=== PATIENT | male | born 1945 ===

== ENCOUNTER 2017-02-26 05:53 | Day surgery (SDC) | payer MEDICARE, OTHER ==
[2017-02-23 11:21] VITALS: BMI 24.5
[2017-02-26] MEDS ORDERED: Iohexol 350mg/ml 100 ML ONE (07:36)
[2017-02-26] MEDS ORDERED: Nitroglycerin 50mg in D5W 50 MG/250 ML BOTTLE IV ONE (07:37)
[2017-02-26] MEDS ORDERED: Midazolam 2 MG/2 ML VIAL ONE ×2 (07:37→07:46)
[2017-02-26] MEDS ORDERED: Sodium Chloride 0.9% 500 ML IV ONE (10:16)
[2017-02-26 12:50] VITALS: BP 127/71; PULSE 64; RESP 15; TEMP 97.9
--- NOTE | 2017-02-26 23:46 | CARDCATH ---
PROCEDURE DATE: 02/26/2017 INDICATIONS: Mr. Chris Villa is a 71-year-old male with history of hypertension, diabetes, hyperlipidemia referred to me by Dr. Ulysses Francisco for evaluation of abnormal stress test. The patient was having symptoms of chest pain and was on medical therapy. PROCEDURE PERFORMED: Left heart catheterization with selective left and right coronary angiograms via 6-Tamazight left radial arterial access. TECHNIQUES OF PROCEDURE: After obtaining informed consent, the patient was brought to the cardiac catheterization in post-absorptive, non-sedated state. The patient was prepped and draped in the usual sterile fashion. A 2% lidocaine was used for infiltration anesthesia. Using modified Seldinger technique, a 6-Tamazight sheath was introduced into the left radial artery. Subsequently over an exchange line J-wire, a JR-4 and JL-4 diagnostic catheters were used to engage the right and left coronary systems. Subsequently, over the J-wire, the JR-4 was used to cross the aortic valve and LV gram was obtained in the WATERS view. Selective angiograms of the left and right coronary systems were obtained in different orthogonal views. At the end of the procedure, a Nicholas wristband was deployed with 10 mL of air for hemostasis. ANGIOGRAPHIC FINDINGS: Right coronary artery is a large-sized vessel. It gives off a SA harshil branch and a RV branch. In the proximal segment, it has [id number] 40% to 50% stenosis. In the mid, it was some mild luminal irregularities at the distal end of the RCA, bifurcates into a PLV, which is a medium-sized vessel, which has ostial 85% stenosis and into a posterior descending artery, which has a proximal mild stenosis of about 30% to 40%. Coronary circulation is right dominant system. The left coronary system, left main large-sized vessel bifurcates to left circumflex coronary artery, left anterior descending artery. Left circumflex coronary artery has a mid lesion 85% to 90% stenosis with two tandem lesions, moderately to severely calcified. Left anterior descending artery has proximal calcified 60% stenosis. Diagonal comes off from the left anterior descending artery. It is a small-sized vessel with an ostial 85% stenosis. The rest of the left anterior descending artery has mild luminal irregularities. IMPRESSION: Multivessel coronary artery disease, SYNTAX score less than 22. RECOMMENDATIONS: The patient is to be discharged home. We will approach the patient with the Heart Team approach. I will consult Dr. Armen Diaz for an opinion regarding MIDCAB, GILAMN to LAD and potentially stenting the left circumflex and the PLV branches. Further management and strategy will be based after discussing the case with Dr. Armen Diaz, who is cardiothoracic surgeon at [facility]. In the meantime, I will continue to keep the patient on dual-antiplatelet therapy with aspirin and Plavix, keep the patient on beta-patience, high-dose statins and NINA inhibitors. Check vitamin D levels and intact PTH secondary to eoksfrkx-lh-mpxldt calcification and the coronary artery disease. The patient's left ventricular ejection fraction was normal about 60-65% with a normal EDP. Thank you Dr. Francisco for letting me participate in the care of your patient. I will follow the patient and discuss further treatment strategies with you. Hector Chen MD MTDSergio
[2017-02-28 13:31] VITALS: O2SAT 98
== END 2017-02-26 12:12 | disposition home or self-care (01) ==
LOC: C.CATHLAB 05:53
PROVIDERS: ATTEND Internal Medicine Interventional Cardiology
DX: I25.10 Atherosclerotic heart disease of native coronary artery without angina pectoris (principal); I10 Essential (primary) hypertension; E78.5 Hyperlipidemia, unspecified; E11.9 Type 2 diabetes mellitus without complications
CPT/HCPCS: 82948; 93458; 94770; C1769; C1887; C1894; J1644; J2250; J3010; J7040; Q9967

== ENCOUNTER 2018-07-25 09:50 | Outpatient (CLI) | payer MEDICARE | END 2018-07-25 09:51 | disposition home or self-care (01) | LOC: C.CTH 09:50 | DX: Z12.2 Encounter for screening for malignant neoplasm of respiratory organs (principal); M79.672 Pain in left foot; Z87.891 Personal history of nicotine dependence ==

== ENCOUNTER 2018-11-06 08:26 | Outpatient (CLI) | payer MEDICARE | END 2018-11-06 08:27 | disposition home or self-care (01) | LOC: C.CARD 08:26 | DX: I25.10 Atherosclerotic heart disease of native coronary artery without angina pectoris (principal) ==